=== PATIENT | male | born 1955 | race Caucasian/White ===

== ENCOUNTER → 2025-04-23 10:43 | Outpatient (CLI) | payer OTHER, SELFPAY | LOC: PHYS 10:45 | PROVIDERS: Family Provider Family Medicine; PCP Family Medicine; Referring Provider Physician Assistant; Visit Provider Physician Assistant | DX: R20.0 Anesthesia of skin (principal); R20.2 Paresthesia of skin | CPT/HCPCS: 95886; 95909 ==